=== PATIENT | male | born 1995 | race Two or more races ===

== ENCOUNTER 2019-04-24 05:03 | Inpatient (IN) | payer MEDICAID ==
[~2019-04-24] VITALS: Ht 175.3 cm; Wt 88.5 kg
--- NOTE | 2019-04-24 07:03 | NUR ---
MS/RN RECEIVED PATIENT FROM [facility], VIA AMBULANCE. PATIENT WAS AWAKE, ALERT, ORIENTED, COMFORTABLE, NO C/O PAIN, NO SIGNS OF DISTRESS NOTED, VITAL SIGNS STABLE, AFEBRILE, TELE AFIB 113-120, ENDORSED TO NEXT RN FOR CONTINUITY OF CARE
--- NOTE | 2019-04-24 07:33 | NUR ---
RN OPENING NOTE PT WAS RECEIVED AT THIS TIME IN BED AT LOWEST AND LOCKED POSITION WITH SIDE RAILS UP X2, A/O X4 BREATHING EVEN AND UNLABORED ON RA, NO CURRENT COMPLAINTS OF ANY DISTRESS OR PAIN, IV IS PATENT AND INTACT, ON TELE MONITOR SHOWING AFIB 113-117, SAFETY PRECAUTIONS IN PLACE, CALL LIGHT WITHIN REACH, WILL MONITOR ACCORDINGLY
[2019-04-24 08:00] VITALS: BP 126/68
[2019-04-24] MEDS ORDERED: DIVA500T2 PO (08:01)
[2019-04-24] MEDS ORDERED: ARIP30TA3 PO (08:01)
[2019-04-24] MEDS ORDERED: METH-406 PO (08:01)
[2019-04-24] MEDS ORDERED: PRAZ5CAP2 PO (08:01)
[2019-04-24] MEDS ORDERED: BUSP10TA35 PO (08:01)
[2019-04-24] MEDS ORDERED: BUPR-51 PO (08:02)
[2019-04-24] MEDS ORDERED: AMIODARONE 900 MG in IV D5W 482 ML IV PRN (09:00)
[2019-04-24] MEDS ORDERED: AMIODARONE 150 MG in IV D5W 100 ML IV ONE (09:00)
[2019-04-24] MEDS ORDERED: AMIODARONE 900 MG in IV D5W 500 ML IV PRN (09:00)
[2019-04-24 09:20] VITALS: BP 125/61
--- NOTE | 2019-04-24 09:24 | NUR ---
TRANSFER NOTE PT WAS TRANSFERED AT THIS TIME TO [facility] ROOM 117-1 VIA ACLS PROTOCOL WITH BEDSIDE REPORT GIVEN TO KELL DONOHUE
[2019-04-24 09:55] LABS: BASOPHILS # (AUTO) 0.1 /CMM (0.0-0.2); BASOPHILS % (AUTO) 0.9 % (0.0-2.0); EOSINOPHILS % (AUTO) 0.4 % (0.0-6.0); HEMATOCRIT 44 % (39-51); HEMOGLOBIN 15.3 g/dL (13.5-17.5); LYMPHOCYTES # (AUTO) 3.1 /CMM (0.8-4.8); LYMPHOCYTES % (AUTO) 33.2 % (20.0-44.0); MEAN CORPUSCULAR HGB CONC 35 g/dl (31.0-36.0); MEAN CORPUSCULAR VOLUME 89 fL (80-96); MONOCYTES # (AUTO) 0.6 /CMM (0.1-1.30); MONOCYTES % (AUTO) 6.2 % (2.0-12.0); NEUTROPHILS # (AUTO) 5.6 /CMM (1.8-8.9); NEUTROPHILS % (AUTO) 59.3 % (43.0-81.0); PLATELET COUNT (AUTO) 195 /CMM (150-450); RED BLOOD CELL COUNT(AUTO) 4.96 MIL/uL (4.5-6.0); WHITE BLOOD COUNT (AUTO) 9.4 K/uL (4.3-11.0)
[2019-04-24 10:20] LABS: ALBUMIN 3.3 g/dL (3.4-5.0); BILIRUBIN,TOTAL 0.2 mg/dL (0.2-1.0); CALCIUM, SERUM 8.5 mg/dL (8.5-10.1); CREATININE 0.8 mg/dL (0.6-1.3); MAGNESIUM 1.8 mg/dL (1.8-2.4); PHOSPHORUS 3.7 mg/dL (2.5-4.9); POTASSIUM 3.9 mmol/L (3.5-5.1); TOTAL PROTEIN, SERUM 6.3 g/dL (6.4-8.2)
--- NOTE | 2019-04-24 10:25 | NUR ---
regina rn notes pt started on amio bolus. bp wnl. hr 125 uncontrolled afib.
[2019-04-24 12:00] VITALS: BP 116/62
[2019-04-24] MEDS ORDERED: METHOCARBAMOL (750MG) 750 MG TABLET PO PRN (14:30)
[2019-04-24 16:00] VITALS: BP 121/69
--- NOTE | 2019-04-24 16:42 | NUR ---
regina rn notes pt wants to leave. dr arellano notified. iv removed. id band removed. tele box removed. exit care given. pt understands instructions.
[2019-04-24] MEDS ORDERED: busPIRone HCL 10 MG TABLET PO SCH (21:00)
[2019-04-24] MEDS ORDERED: PRAZOSIN HCL 1 MG CAPSULE PO SCH (21:00)
[2019-04-25] MEDS ORDERED: DIVALPROEX SODIUM 500 MG TABLET.DR PO SCH (09:00)
[2019-04-25] MEDS ORDERED: BUPROPION XL 150 MG TAB.ER.24 PO SCH (09:00)
[2019-04-25] MEDS ORDERED: ARIPIPRAZOLE 5 MG TABLET PO SCH (09:00)
== END 2019-04-24 16:38 | disposition left against medical advice (07) | DRG 201 ==
LOC: TELE 06:38 → TELE-TD 09:18
PROVIDERS: ADMIT Family Medicine; ATTEND Family Medicine
DX: I48.91 Unspecified atrial fibrillation (principal); D72.829 Elevated white blood cell count, unspecified; E87.6 Hypokalemia; F10.10 Alcohol abuse, uncomplicated; F17.210 Nicotine dependence, cigarettes, uncomplicated; F15.10 Other stimulant abuse, uncomplicated
CPT/HCPCS: 36415; 80053-TC; 83735-TC; 84100-TC; 85025-TC; 93307-TC; G0378; J0282; J7040; J7060